=== PATIENT | female | born 1955 | race Caucasian/White ===

== ENCOUNTER → 2023-11-24 10:56 | Outpatient (REF) | payer MEDICARE, OTHER, SELFPAY ==
[2023-11-24 11:04] LABS: Ionized Calcium 1.26 mMOL/L (1.15-1.33)
== END ==
LOC: REG 10:56
PROVIDERS: ATTENDING PHYSICIAN Student in an Organized Health Care Education/Training Program
DX: E83.52 Hypercalcemia (principal)
CPT/HCPCS: 36415; 82330

== ENCOUNTER → 2023-12-08 09:18 | Outpatient (REF) | payer MEDICARE, OTHER, SELFPAY | LOC: DHCBS HW 09:18 | PROVIDERS: ATTENDING PHYSICIAN Nuclear Medicine Nuclear Cardiology; FAMILY PHYSICIAN Student in an Organized Health Care Education/Training Program | DX: R06.02 Shortness of breath (principal); R00.2 Palpitations | CPT/HCPCS: 93306 ==

== ENCOUNTER → 2023-12-15 07:14 | Outpatient (REF) | payer MEDICARE, OTHER, SELFPAY | LOC: DHCBC/DCA 07:14 | PROVIDERS: ATTENDING PHYSICIAN Nuclear Medicine Nuclear Cardiology; FAMILY PHYSICIAN Student in an Organized Health Care Education/Training Program | DX: R06.02 Shortness of breath (principal); R00.2 Palpitations | CPT/HCPCS: 78452; 93017; A9500 ==

== ENCOUNTER → 2025-06-03 11:38 | Outpatient (REF) | payer MEDICARE, OTHER, SELFPAY | LOC: RAD 11:38 | PROVIDERS: ATTENDING PHYSICIAN Nurse Practitioner Family | DX: M25.511 Pain in right shoulder (principal) | CPT/HCPCS: 73030 ==

== ENCOUNTER → 2025-07-10 14:43 | Outpatient (REF) | payer MEDICARE, OTHER, SELFPAY | LOC: CLAB 14:43 | PROVIDERS: ATTENDING PHYSICIAN Obstetrics & Gynecology | DX: N93.9 Abnormal uterine and vaginal bleeding, unspecified (principal) | CPT/HCPCS: 88305 ==